=== PATIENT | male | born 1985 | race Caucasian/White ===

== ENCOUNTER 2019-07-05 11:00 | Emergency (ER) | payer OTHER ==
[~2019-07-05] VITALS: Ht 185.4 cm; Wt 97.5 kg
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
[2019-07-05] MEDS ORDERED: LIDOCAINE HCL/PF 1% 30 ML SDV ONE (11:14)
--- NOTE | 2019-07-05 11:25 | NUR ---
LUCIANA CABALLERO AT BEDSIDE
[2019-07-05] MEDS ORDERED: BUPIVACAINE 0.25% 75 MG/30 ML VIAL ONE (12:11)
--- NOTE | 2019-07-05 13:07 | NUR ---
NON-ADHERENT DRESSING AND FINGER SPLINT PLACED ON PATIENT'S L 5TH FINGER BY TECH
--- NOTE | 2019-07-05 13:30 | NUR ---
Patient discharged to home in stable condition. Written and verbal after care instructions given. Patient verbalizes understanding of instruction.
[2019-07-05 13:31] VITALS: BP 125/75
== END 2019-07-05 13:33 | disposition home or self-care (01) ==
LOC: ER 11:22
DX: S62.607A Fracture of unspecified phalanx of left little finger, initial encounter for closed fracture (principal); S61.217A Laceration without foreign body of left little finger without damage to nail, initial encounter; W20.8XXA Other cause of strike by thrown, projected or falling object, initial encounter; Y93.89 Activity, other specified; Y92.89 Other specified places as the place of occurrence of the external cause; Y99.0 Civilian activity done for income or pay
CPT/HCPCS: 12001; 73140; 99283; A6403; J3490 ×2

== ENCOUNTER 2019-12-16 17:28 | Emergency (ER) | payer OTHER ==
[~2019-12-16] VITALS: Ht 185.4 cm; Wt 97.5 kg
--- NOTE | 2019-12-16 17:36 | NUR ---
SEEN BY DR YEPEZ, SLOW TO RESPOND WITH OCCASIONAL BLANK STARE WHILE BEING INTERVIEWED BY DR YEPEZ.
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
--- NOTE | 2019-12-16 17:52 | NUR ---
URINE SENT TO LAB. FLUIDS STARTED.
[2019-12-16 17:56] LABS: BASOPHILS % (AUTO) 0.6 % (0.0-2.0); HEMATOCRIT 40 % (39-51); HEMOGLOBIN 13.2 g/dL (13.5-17.5); LYMPHOCYTES # (AUTO) 2.9 /CMM (0.8-4.8); LYMPHOCYTES % (AUTO) 40.4 % (20.0-44.0); MEAN CORPUSCULAR HGB CONC 33 g/dl (31.0-36.0); MEAN CORPUSCULAR VOLUME 87 fL (80-96); MONOCYTES # (AUTO) 0.5 /CMM (0.1-1.30); MONOCYTES % (AUTO) 7.1 % (2.0-12.0); NEUTROPHILS # (AUTO) 3.5 /CMM (1.8-8.9); NEUTROPHILS % (AUTO) 49.9 % (43.0-81.0); PLATELET COUNT (AUTO) 264 /CMM (150-450); RED BLOOD CELL COUNT(AUTO) 4.64 MIL/uL (4.5-6.0); WHITE BLOOD COUNT (AUTO) 7.1 K/uL (4.3-11.0)
[2019-12-16] MEDS ORDERED: IV NS 0.9% 1,000 ML BAG IV ONE (18:00)
[2019-12-16 18:02] LABS: APPEARANCE,URINE Clear (CLEAR); BILIRUBIN,URINE Negative (NEGATIVE); BLOOD, URINE Negative Ery/uL (NEGATIVE); COLOR,URINE Yellow (YELLOW); KETONES,URINE Negative (NEGATIVE); LEUKOCYTE ESTERASE ,URINE Negative (NEGATIVE); NITRITE, URINE Negative (NEGATIVE); PROTEIN,URINE Negative (NEGATIVE); UGLUCOSE Negative (NEGATIVE); UROBILINOGEN,URINE 0.2 EU/dL (0.2)
--- NOTE | 2019-12-16 18:05 | NUR ---
PT IN BED. VSS. PT ABLE TO RESPOND TO QUESTIONS.
[2019-12-16 18:07] LABS: CALCIUM, SERUM 9.1 mg/dL (8.5-10.1); CARBON DIOXIDE 28 mmol/L (21-32); CHLORIDE 105 mmol/L (98-107); GLUCOSE 95 mg/dL (74-106); POTASSIUM 3.8 mmol/L (3.5-5.1); SODIUM SERUM 142 mmol/L (136-145); UREA NITROGEN, BLOOD 16 mg/dL (7-18)
[2019-12-16 18:12] LABS: ALANINE AMINOTRANSFERASE 46 U/L (12-78); ALKALINE PHOSPHATASE 38 U/L (46-116); ASPARTATE AMINOTRANSFERASE 36 U/L (15-37); BILIRUBIN,DIRECT 0.1 mg/dL (0.0-0.2); BILIRUBIN,TOTAL 0.6 mg/dL (0.2-1.0); TOTAL PROTEIN, SERUM 7.3 g/dL (6.4-8.2)
[2019-12-16 18:13] LABS: ACETAMINOPHEN < 2 ug/ml (10-30); ALCOHOL, BLOOD < 3 mg/dL (0-0); SALICYLATE 0.8 mg/dL (2.8-20.0)
--- NOTE | 2019-12-16 19:43 | NUR ---
PT RESTING COMFORTABLY. LAFD AT BEDSIDE.
--- NOTE | 2019-12-16 19:59 | NUR ---
IV removed. Catheter intact and site benign. Pressure and 4x4 applied to site. No bleeding noted.
--- NOTE | 2019-12-16 20:40 | NUR ---
Patient discharged to home in stable condition. Written and verbal after care instructions given. Patient verbalizes understanding of instruction. PT ambulated with steady gait.
[2019-12-16 20:41] VITALS: BP 128/78
== END 2019-12-16 20:41 | disposition home or self-care (01) ==
LOC: ER 17:29
DX: R42 Dizziness and giddiness (principal); R41.0 Disorientation, unspecified; Z77.29 Contact with and (suspected) exposure to other hazardous substances
CPT/HCPCS: 36415; 80048; 80076; 80305; 80307; 80329; 81001; 85025; 96360; 99283; G0480; J7030 ×2; 81000-TC